=== PATIENT | female | born 1990 | race African-American/Black ===

== ENCOUNTER 2023-06-03 17:03 | Emergency (ER) | payer SELFPAY ==
[~2023-06-03] VITALS: Ht 162.6 cm; Wt 61.0 kg
[2023-06-03 17:27] VITALS: BP 124/81; O2SAT 100
[2023-06-03] MEDS ORDERED: ACETAMINOPHEN 325MG TABLET PO ONE (20:30)
[2023-06-03] MEDS ORDERED: IBUP-1523 MT (22:20)
[2023-06-03] MEDS ORDERED: DEXT30SU17 MT (22:20)
[2023-06-03] MEDS ORDERED: TOPUD MT (22:20)
[2023-06-03 22:41] VITALS: PULSE 99; RESP 17; TEMP 98
== END 2023-06-03 22:46 | disposition home or self-care (01) ==
LOC: ER 17:03
DX: M79.641 Pain in right hand (principal); U07.1 COVID-19
CPT/HCPCS: 99284; 87426; 81025; 73130; C9803

== ENCOUNTER 2025-04-15 10:08 | Emergency (ER) | payer OTHER ==
[~2025-04-15] VITALS: Ht 160 cm; Wt 73.0 kg
[~2025-04-15 10:08] MED LIST: DEXT30SU17 MT; IBUP-1523 MT; TOPUD MT
[2025-04-15 10:31] VITALS: O2SAT 100
[2025-04-15 12:02] LABS: BASOPHILS % 0.7 % (0.0-2.0); EOSINOPHILS % 0.7 % (0.0-5.0); HEMATOCRIT. 41.9 % (36.0-48.0); HEMOGLOBIN. 14.1 g/dL (12.0-16.0); LYMPHOCYTES % 19.4 % (20.0-50.0); MEAN PLATELET VOLUME 8.6 fl (7.4-10.4); MONOCYTES % 14.8 % (2.0-8.0); NEUTROPHILS % 64.4 % (40.0-76.0); PLATELET 335 x1000/uL (130-400); RED BLOOD CELL COUNT 4.93 mill/uL (4.2-5.4); RED CELL DISTRIBUTION WIDTH 14.0 % (11.6-14.6)
[2025-04-15] MEDS: FAMOTIDINE 20MG TABLET PO ONE (12:25)
[2025-04-15] MEDS: ACETAMINOPHEN 325MG TABLET PO ONE (12:26)
[2025-04-15] MEDS: ONDANSETRON 4MG ODT PO ONE (12:26)
[2025-04-15 12:31] LABS: CREATININE 0.9 mg/dL (0.6-1.0)
[2025-04-15 12:32] LABS: UREA NITROGEN BLOOD 6 mg/dL (9-23)
[2025-04-15 12:33] LABS: ASPARTATE AMINOTRANSFERASE 94 IU/L (<34)
[2025-04-15 12:34] LABS: BILIRUBIN DIRECT 0.3 mg/dL (<=3.0); BILIRUBIN TOTAL 1.1 mg/dL (0.1-1.0); PROTEIN TOTAL 8.4 g/dL (6.0-8.3)
[2025-04-15 13:39] LABS: CLARITY URINE CLOUDY (CLEAR); COLOR URINE DARK YELLOW (YELLOW); GLUCOSE URINE NEGATIVE (NEGATIVE); KETONES URINE TRACE (NEGATIVE); OCCULT BLOOD URINE 3+ (NEGATIVE); PH URINE 7.5 (4.5-8.0); PROTEIN URINE 2+ (NEGATIVE); SPECIFIC GRAVITY URINE 1.015 (1.005-1.030)
[2025-04-15 13:40] LABS: LEUKOCYTE ESTERASE URINE 1+ (NEGATIVE); NITRITE URINE NEGATIVE (NEGATIVE); UROBILINOGEN URINE 2.0 E.U./dL (0.2-1.0)
[2025-04-15 13:56] LABS: *AMPHETAMINES SCREEN URINE NEGATIVE (NEGATIVE); *BARBITURATES SCREEN URINE NEGATIVE (NEGATIVE); *BENZODIAZEPINES SCREEN URINE NEGATIVE (NEGATIVE); *COCAINE SCREEN URINE PRESUMPTIVE POSITIVE (NEGATIVE); CANNABINOID URINE SCREEN PRESUMPTIVE POSITIVE (NEGATIVE); ECSTASY MDMA SCREEN URINE NEGATIVE (NEGATIVE); METHADONE URINE SCREEN NEGATIVE (NEGATIVE); OPIATES URINE SCREEN NEGATIVE (NEGATIVE); PHENCYCLIDINE URINE SCREEN NEGATIVE (NEGATIVE)
[2025-04-15 14:02] LABS: BACTERIA URINE TRACE; SQUAMOUS EPITHELIAL CELL URINE 2+ /lpf (RARE/1+); YEAST URINE NONE SEEN
[2025-04-15] MEDS ORDERED: NITR-87 MT (14:09)
[2025-04-15 14:25] LABS: HCG SCREEN NEGATIVE
[2025-04-15] MEDS: METOCLOPRAMIDE HCL 10MG TABLET PO ONE (15:02)
[2025-04-15] MEDS: POTASSIUM CHLORIDE 20MEQ TABLET SR PO ONE (15:02)
[2025-04-15] MEDS: NITROFURANTOIN 100MG M/M CAPSULE PO ONE (15:02)
[2025-04-15] MEDS ORDERED: ONDA4TAB50 MT (15:34)
[2025-04-15] MEDS ORDERED: FAMO-135 MT (15:34)
[2025-04-15 15:51] VITALS: BP 131/69; PULSE 98; RESP 18; TEMP 36.9; O2SAT 100
== END 2025-04-15 15:52 | disposition home or self-care (01) ==
LOC: ER 10:08
DX: D25.9 Leiomyoma of uterus, unspecified (principal); E87.6 Hypokalemia; N39.0 Urinary tract infection, site not specified; F12.90 Cannabis use, unspecified, uncomplicated; F14.90 Cocaine use, unspecified, uncomplicated; Z79.899 Other long term (current) drug therapy
CPT/HCPCS: 80076; 80305; 80048; 81003; 81025; 80320; 84703; 83690; 85025; 87086; 36415; 74176; 76830; 76856; 99284; J8597; Q0162; G0480